=== PATIENT | female | born 1975 ===

== ENCOUNTER 2021-12-09 05:38 | Outpatient (CLI) | payer SELFPAY ==
[~2021-12-09] VITALS: Ht 149.9 cm; Wt 70.0 kg
[~2021-12-09 05:38] MED LIST: ACHD5005 PO; AZIT250T12 PO; DOCU100C37 PO; FERR325T18 PO; IBUP-1773 PO; PNV91TAB3 PO
[2021-12-12] MEDS ORDERED: IBUP-1773 PO (10:35)
== END 2021-12-12 10:44 | disposition home or self-care (01) ==
LOC: PREOP 05:38
PROVIDERS: ATTEND Obstetrics & Gynecology
DX: Z01.818 Encounter for other preprocedural examination (principal)

== ENCOUNTER 2021-12-13 05:53 | Day surgery (SDC) | payer OTHER ==
[2021-12-13] VITALS (11 sets, daily range): BP systolic 92–168; BP diastolic 56–109
[~2021-12-13] VITALS: Ht 149.9 cm; Wt 70.0 kg
[2021-12-13] MEDS ORDERED: LACTATED RINGERS 1,000 ML IV PRN (06:00)
--- NOTE | 2021-12-13 07:08 | Progress Note-Pre Operative ---
Pre-Operative Progress Note H&P Reviewed The H&P was reviewed, patient examined and no changes noted. Time Seen by Provider: 07:00 Date H&P Reviewed: Dec 13, 2021 Time H&P Reviewed: 07:00 Pre-Operative Diagnosis: AUB, dysmenorrhea, thickened endometrium with endo metrial mass HELEN FLANAGAN MD Dec 13, 2021 07:08
[2021-12-13] MEDS ORDERED: BUPIVACAINE 0.5% 30 ML (SENSORCAINE) VIAL ONE (07:10)
[2021-12-13] MEDS ORDERED: proPOfol 200 MG/20 ML (DIPRIVAN) VIAL IV ONE (07:12)
[2021-12-13] MEDS ORDERED: LIDOCAINE PF 2% 5 ML (XYLOCAINE) VIAL ONE (07:12)
[2021-12-13] MEDS ORDERED: SEVOFLURANE (ULTANE) 15 ML INHAL SOLN ONE (07:12)
[2021-12-13] MEDS ORDERED: fentaNYL INJ 100 MCG/2 ML AMP ONE (07:12)
[2021-12-13] MEDS ORDERED: ONDANSETRON 4 MG/2 ML (SDV) Z0FRAN ONE (07:12)
[2021-12-13] MEDS ORDERED: MIDAZOLAM 2 MG/2 ML (VERSED) VIAL ONE (07:12)
[2021-12-13] MEDS ORDERED: D5 LR IV SOLUTION 1,000 ML IV SCH (07:15)
[2021-12-13] MEDS ORDERED: ONDANSETRON 4 MG/2 ML (SDV) Z0FRAN IVP PRN ×2 (07:15→08:30)
[2021-12-13] MEDS ORDERED: KETOROLAC 30 MG/ML VIAL IVP ONE (07:15)
[2021-12-13] MEDS ORDERED: KETOROLAC 30 MG/ML VIAL ONE (07:43)
--- NOTE | 2021-12-13 08:18 | Anesthesia-General Post-Op ---
General Patient Condition Mental Status/LOC: Same as Preop Cardiovascular: Satisfactory Nausea/Vomiting: Absent Respiratory: Satisfactory Pain: Controlled Complications: Absent Post Op Complications Complications None Follow Up Care/Instructions Patient Instructions None needed. Anesthesia/Patient Condition Patient Condition Patient is doing well, no complaints, stable vital signs, no apparent adverse anesthesia problems. No complications reported per nursing. TIMO SHELTON CRNA Dec 13, 2021 08:18
[2021-12-13] MEDS ORDERED: MEPERIDINE (DEMEROL) INJ 50 MG/ML IVP ONE (08:30)
[2021-12-13] MEDS ORDERED: morphine INJ 10 MG/ML 1ML (SYR OR VIAL) IVP ONE (08:30)
--- NOTE | 2021-12-13 08:33 | OB/GYN Operative Report ---
Operative Report Date of Procedure:Dec 13, 2021 Preoperative Diagnosis: [Dysmenorrhea, endometrial thickening with sono finding of endometrial mass] Postoperative Diagnosis: [No endometrial mass identified] Name of the Procedure: [Hysteroscopy with biopsy] Surgeon: Helen Flanagan Credit Support Counselor(s): [none] Anesthesia: [General] Indications for Procedure: [As above] Findings of the Procedure: [Normal-appearing cavity. Bilateral tubal ostia visualized without difficulty. No mosaicism or masses noted] Name and Description of the Procedure: [] After the risk benefits alternatives of the procedure were described to the patient, she was taken to the operating room where general anesthesia was obtained without difficulty. She is placed in dorsal lithotomy position and prepped and draped in the usual sterile fashion. A weighted speculum was placed in the patient's vagina and the anterior lip of the cervix grasped with a si ngle-tooth tenaculum. A paracervical block was placed and the cervix was dilated to accommodate the true clear hysteroscope which was advanced without difficulty under direct visualization. The endometrial cavity was surveyed with the above findings. No polyp or masses were appreciated as reported on the sono. No mosaicism or thickening was identified and a biopsy was taken thr oughout the cavity and all instruments removed from the patient's vagina. Hemostasis was appreciated Patient tolerated the procedure well. Sponge lap needle instrument counts were correct and she was taken to the recovery room awake and in stable condition. No preoperative antibiotics were indicated or given. Complications: None Disposition: [Anticipate dismissal home today with follow-up in the clinic] HELEN FLANAGAN MD Dec 13, 2021 08:33
--- NOTE | 2021-12-29 12:47 | HISTORY AND PHYSICAL ---
DATE OF SERVICE: 12/13/2021 CHIEF COMPLAINT: Referral for sono. HISTORY OF PRESENT ILLNESS: This is a 46-year-old sent from [facility] for abnormal sonogram with menorrhagia and dysmenorrhea. Uses ibuprofen for cramps with moderate relief. Denies vaginal discharge, dysuria. Denies pelvic pain between periods. Denies intermenstrual bleeding using tubal ligation for contraception. No other complaints of. Sono shows uterus 8.3 cm with endometrial stripe of 1.2 cm with questionable mass or polyp within the endometrial cavity. No adnexal or myometrial masses. Pap 09/08/2021 and HPV are negative. Hemoglobin was 10.9. PAST MEDICAL HISTORY: Hypertension and anemia. PAST SURGICAL HISTORY: Tubal ligation and x7. REVIEW OF SYSTEMS: Negative other than per HPI. MEDICATIONS: Ibuprofen as needed and iron supplement. ALLERGIES: NO KNOWN DRUG ALLERGIES. SOCIAL HISTORY: Denies tobacco, alcohol or drug use. She is accompanied in preop by her and drop wire hanger. PHYSICAL EXAMINATION: VITAL SIGNS: Stable. She is afebrile. GENERAL: Alert and oriented x3, in no acute distress, resting comfortably in the bed. HEAD: Normocephalic, atraumatic. CHEST: Nonlabored. ASSESSMENT: Menorrhagia with abnormal sono findings. PLAN: Hysteroscopy with Risa H and P and exam and consent obtained with certified personal finance counselor. Job ID: [id number] DocumentID: [id number] Dictated Date: 12/28/2021 17:11:32 Monorail Charger Operator Date: 12/28/2021 22:34:40 Dictated By: Juana Heard MD
== END 2021-12-13 10:32 | disposition home or self-care (01) ==
LOC: SDC 05:53
PROVIDERS: ATTEND Obstetrics & Gynecology
DX: N85.00 Endometrial hyperplasia, unspecified (principal); N94.6 Dysmenorrhea, unspecified
CPT/HCPCS: 84703; 88305